=== PATIENT | female | born 1970 | race African-American/Black ===

== ENCOUNTER 2022-05-11 16:10 | Observation (INO) | payer OTHER ==
[2022-05-11 19:01] LABS: BASO % 0.2 % (0-2.0); EOS % 0.1 % (0-4.5); HEMOGLOBIN 11.7 GM/dL (10.7-15.3); LYMPH % 10.3 % (8-40); MCH 31.4 pg (25.7-33.7); MCHC 33.3 g/dl (32.0-36.0); MEAN CELL VOLUME 94.5 fl (80-96); MONO % 3.8 % (3.8-10.2); NEUT % 85.6 % (42.8-82.8); PLATELET COUNT 317 10^3/uL (134-434); RBC 3.71 M/mm3 (3.60-5.2); RDW 13.2 % (11.6-15.6)
[2022-05-11 20:32] LABS: ALBUMIN 3.9 g/dl (3.4-5.0); BLOOD UREA NITROGEN 27.1 mg/dL (7-18); CALCIUM 10.2 mg/dL (8.5-10.1)
[2022-05-11 20:35] LABS: CREATININE 2.1 mg/dL (0.55-1.3)
[2022-05-11 20:36] LABS: TOT PROT 8.4 g/dl (6.4-8.2)
[2022-05-11 20:37] LABS: BILIRUBIN,TOTAL 0.6 mg/dL (0.2-1)
[2022-05-11] MEDS ORDERED: SODIUM CHLORIDE 0.9% 500 ML INFUS.BAG IV ONE (20:59)
[2022-05-11] MEDS ORDERED: ALPRAZolam 1 MG TABLET PO PRN (21:14)
[2022-05-11] MEDS ORDERED: ALPRAZolam 0.25 MG TABLET ONE ×2 (21:38→22:37)
[2022-05-11] MEDS ORDERED: ALPRAZolam 0.25 MG TABLET PO ONE (22:34)
[2022-05-12 01:06] LABS: CALCIUM 9.7 mg/dL (8.5-10.1)
[2022-05-12 01:07] LABS: BLOOD UREA NITROGEN 23.4 mg/dL (7-18)
[2022-05-12 01:10] LABS: CREATININE 1.9 mg/dL (0.55-1.3)
[2022-05-12] MEDS ORDERED: MAG HYDROX/AL HYDROX/SIMETH 30 ML UNIT-DOSE CUP PO ONE (01:14)
[2022-05-12] MEDS ORDERED: ACETAMINOPHEN 1000 MG/100 ML BAG IVPB ONE (01:14)
[2022-05-12] MEDS ORDERED: FAMOTIDINE 20 MG/50 ML IVPB 20 MG/50 ML MG IVPB ONE (01:14)
[2022-05-12] MEDS ORDERED: FAMOTIDINE 20 MG TABLET ONE (01:33)
[2022-05-12] MEDS ORDERED: MAG HYDROX/AL HYDROX/SIMETH 30 ML UNIT-DOSE CUP ONE (01:33)
[2022-05-12] MEDS ORDERED: ACETAMINOPHEN INJECTION 100 ML IVPB ONE (01:33)
[2022-05-12] MEDS ORDERED: HEPARIN NA (PORCINE) 5,000 UNITS/ML 1ML VIAL ONE ×3 (08:53→22:03)
[2022-05-12] MEDS ORDERED: amLODIPine BESYLATE 5 MG TABLET (FP) ONE (08:53)
[2022-05-12] MEDS: amLODIPine BESYLATE 5 MG TABLET (FP) PO SCH (09:00)
[2022-05-12] MEDS: HEPARIN NA (PORCINE) 5,000 UNITS/ML 1ML VIAL SQ SCH ×3 (09:27→22:00)
[2022-05-12 10:06] LABS: INR 1.19 (0.83-1.09); PROTHROMBIN TIME (PATIENT) 13.8 SEC (9.7-13.0)
[2022-05-12 10:08] LABS: ACTIVATED PTT 29.1 SECONDS (25.2-36.5)
[2022-05-12] MEDS ORDERED: CEFTRIAXONE 1 GM/50 ML BAG ONE (12:34)
[2022-05-12 14:25] LABS: EPI CELLS 34 /uL (0-25.1); HYALINE CASTS 1 /uL (0-3.1); PH,URINE 5.5 (5.0-8.0); URINE APPEARANCE TURBID; URINE BACTERIA 155 /uL (0-1359); URINE BILIRUBIN NEGATIVE (NEGATIVE); URINE COLOR YELLOW; URINE GLUCOSE (UA) NEGATIVE (NEGATIVE); URINE KETONE NEGATIVE (NEGATIVE); URINE LEUK ESTERASE 3+ (NEGATIVE); URINE NITRITE NEGATIVE (NEGATIVE); URINE PROTEIN 1+ (NEGATIVE); URINE UROBILINOGEN 0.2 mg/dL (0.2-1.0); URINE WBC 4651 /uL (0-25.8)
[2022-05-12 14:29] LABS: OPIATES, URI NEGATIVE (NEGATIVE); PHENCYCLIDINE,URINE NEGATIVE (NEGATIVE); URINE BENZODIAZEPINES NEGATIVE (NEGATIVE)
[2022-05-12 14:30] LABS: METHADONE, UR NEGATIVE (NEGATIVE)
[2022-05-12 14:37] LABS: COCAINE, UR NEGATIVE (NEGATIVE); URINE AMPHETAMINES NEGATIVE (NEGATIVE); URINE BARBITURATES NEGATIVE (NEGATIVE)
[2022-05-12 14:41] LABS: URINE RBC 39.5 /uL (0-23.9); YEAST MODERATE (NEGATIVE)
[2022-05-12] MEDS: CEFTRIAXONE 1 GM in DEXTROSE 5%-WATER - 50 ML IVPB SCH (15:07)
[2022-05-12] MEDS ORDERED: ONDANSETRON 4 MG/2 ML VIAL IVPUSH ONE ×2 (16:15→21:22)
[2022-05-12] MEDS ORDERED: morphine CARPU-JECT 2 MG/1 ML DISP.SYRIN IVPUSH ONE (16:15)
[2022-05-12] MEDS ORDERED: ONDANSETRON 4 MG/2 ML VIAL ONE ×2 (16:21→22:02)
[2022-05-12] MEDS: busPIRone HCL 10 MG TABLET (FP) PO SCH (22:49)
[2022-05-13] MEDS ORDERED: ACETAMINOPHEN 1000 MG/100 ML BAG IVPB ONE (03:23)
[2022-05-13] MEDS: HEPARIN NA (PORCINE) 5,000 UNITS/ML 1ML VIAL SQ SCH ×3 (05:07→21:37)
[2022-05-13 10:51] LABS: BASO % 0.3 % (0-2.0); EOS % 4.5 % (0-4.5); HEMATOCRIT 34.4 % (32.4-45.2); HEMOGLOBIN 11.3 GM/dL (10.7-15.3); LYMPH % 28.2 % (8-40); MCH 31.6 pg (25.7-33.7); MCHC 32.8 g/dl (32.0-36.0); MEAN CELL VOLUME 96.3 fl (80-96); MEAN PLT VOLUME 8.6 fl (7.5-11.1); MONO % 11.2 % (3.8-10.2); NEUT % 55.8 % (42.8-82.8); PLATELET COUNT 294 10^3/uL (134-434); RBC 3.58 M/mm3 (3.60-5.2); RDW 13.7 % (11.6-15.6); WHITE BLOOD COUNT 8.1 K/mm3 (4.0-10.0)
[2022-05-13 11:29] LABS: CALCIUM 10.7 mg/dL (8.5-10.1)
[2022-05-13 11:30] LABS: MAGNESIUM 2.4 mg/dL (1.8-2.4)
[2022-05-13 11:33] LABS: ALBUMIN 3.9 g/dl (3.4-5.0); BLOOD UREA NITROGEN 26.1 mg/dL (7-18)
[2022-05-13 11:36] LABS: CREATININE 2.1 mg/dL (0.55-1.3); PHOSPHOROUS 4.1 mg/dL (2.5-4.9)
[2022-05-13 11:38] LABS: BILIRUBIN,TOTAL 0.7 mg/dL (0.2-1)
[2022-05-13] MEDS: busPIRone HCL 10 MG TABLET (FP) PO SCH ×3 (12:50→21:37)
[2022-05-13] MEDS: amLODIPine BESYLATE 5 MG TABLET (FP) PO SCH (12:50)
[2022-05-13] MEDS: CEFTRIAXONE 1 GM in DEXTROSE 5%-WATER - 50 ML IVPB SCH (12:50)
[2022-05-13] MEDS: SODIUM CHLORIDE 1,000 ML IV SCH ×2 (14:10→23:20)
[2022-05-13] MEDS ORDERED: ACETAMINOPHEN 1000 MG/100 ML BAG IVPB PRN (14:52)
[2022-05-13] MEDS ORDERED: morphine SULFATE 4 MG/ML VIAL IVPUSH PRN (15:01)
[2022-05-13] MEDS ORDERED: diazePAM 2 MG TABLET PO PRN (17:40)
[2022-05-13] MEDS ORDERED: ONDANSETRON 4 MG/2 ML VIAL IVPB PRN (17:42)
[2022-05-14] MEDS: HEPARIN NA (PORCINE) 5,000 UNITS/ML 1ML VIAL SQ SCH ×4 (06:04→21:21)
[2022-05-14 09:56] LABS: BASO % 0.3 % (0-2.0); EOS % 2.1 % (0-4.5); HEMATOCRIT 28.7 % (32.4-45.2); HEMOGLOBIN 9.6 GM/dL (10.7-15.3); LYMPH % 17.9 % (8-40); MCH 33.1 pg (25.7-33.7); MCHC 33.6 g/dl (32.0-36.0); MEAN CELL VOLUME 98.6 fl (80-96); MEAN PLT VOLUME 9.1 fl (7.5-11.1); MONO % 7.8 % (3.8-10.2); NEUT % 71.9 % (42.8-82.8); PLATELET COUNT 227 10^3/uL (134-434); RBC 2.91 M/mm3 (3.60-5.2); RDW 12.9 % (11.6-15.6); WHITE BLOOD COUNT 6.8 K/mm3 (4.0-10.0)
[2022-05-14] MEDS: amLODIPine BESYLATE 5 MG TABLET (FP) PO SCH (10:03)
[2022-05-14] MEDS: CEFTRIAXONE 1 GM in DEXTROSE 5%-WATER - 50 ML IVPB SCH (10:03)
[2022-05-14] MEDS: busPIRone HCL 10 MG TABLET (FP) PO SCH ×2 (10:03→21:21)
[2022-05-14 10:20] LABS: ALBUMIN 3.3 g/dl (3.4-5.0); CALCIUM 9.3 mg/dL (8.5-10.1)
[2022-05-14 10:21] LABS: BLOOD UREA NITROGEN 25.9 mg/dL (7-18); MAGNESIUM 2.2 mg/dL (1.8-2.4)
[2022-05-14 10:24] LABS: CREATININE 1.5 mg/dL (0.55-1.3); PHOSPHOROUS 3.4 mg/dL (2.5-4.9)
[2022-05-14 10:25] LABS: BILIRUBIN,TOTAL 0.6 mg/dL (0.2-1); TOT PROT 6.7 g/dl (6.4-8.2)
[2022-05-14 12:27] VITALS: BMI 26.6
[2022-05-14] MEDS ORDERED: DEXTROSE 5%-0.45% SALINE 1,000 ML IV SCH (12:45)
[2022-05-14] MEDS ORDERED: FLUCONAZOLE 100 MG TABLET (UD) PO ONE (14:00)
[2022-05-15] MEDS: HEPARIN NA (PORCINE) 5,000 UNITS/ML 1ML VIAL SQ SCH ×2 (05:54→13:35)
[2022-05-15 09:03] LABS: ALBUMIN 2.9 g/dl (3.4-5.0); BLOOD UREA NITROGEN 13.1 mg/dL (7-18)
[2022-05-15 09:04] LABS: CALCIUM 8.7 mg/dL (8.5-10.1)
[2022-05-15 09:06] LABS: CREATININE 1.6 mg/dL (0.55-1.3)
[2022-05-15 09:08] LABS: BILIRUBIN,TOTAL 0.6 mg/dL (0.2-1); TOT PROT 6.1 g/dl (6.4-8.2)
[2022-05-15] MEDS ORDERED: FLUCONAZOLE 100 MG TABLET (UD) PO SCH (10:00)
[2022-05-15] MEDS: amLODIPine BESYLATE 5 MG TABLET (FP) PO SCH (10:02)
[2022-05-15] MEDS: busPIRone HCL 10 MG TABLET (FP) PO SCH (10:02)
[2022-05-15 14:42] VITALS: BP 120/80; PULSE 80; RESP 20; TEMP 98.5
== END 2022-05-15 16:18 | disposition home or self-care (01) ==
LOC: JER 16:10 → JERBED 05-12 02:16 → INTOOBSV 05-12 02:16 → J5S 05-13 00:50
PROVIDERS: ADMIT Internal Medicine; ATTEND Internal Medicine
PROC: 3E03329 Introduction of Other Anti-infective into Peripheral Vein, Percutaneous Approach (ICD-10-PCS; principal; 2022-05-12)
PROC: 3E033NZ Introduction of Analgesics, Hypnotics, Sedatives into Peripheral Vein, Percutaneous Approach (ICD-10-PCS; 2022-05-12)
PROC: 3E0337Z Introduction of Electrolytic and Water Balance Substance into Peripheral Vein, Percutaneous Approach (ICD-10-PCS; 2022-05-12)
PROC: 3E033GC Introduction of Other Therapeutic Substance into Peripheral Vein, Percutaneous Approach (ICD-10-PCS; 2022-05-12)
DX: R79.89 Other specified abnormal findings of blood chemistry (principal); R00.2 Palpitations; F41.0 Panic disorder [episodic paroxysmal anxiety]; I12.9 Hypertensive chronic kidney disease with stage 1 through stage 4 chronic kidney disease, or unspecified chronic kidney disease; N18.9 Chronic kidney disease, unspecified; N17.9 Acute kidney failure, unspecified; Z94.0 Kidney transplant status; I45.19 Other right bundle-branch block; N39.0 Urinary tract infection, site not specified; K56.609 Unspecified intestinal obstruction, unspecified as to partial versus complete obstruction; Z87.09 Personal history of other diseases of the respiratory system; Z87.440 Personal history of urinary (tract) infections; N13.30 Unspecified hydronephrosis; F41.9 Anxiety disorder, unspecified; E87.0 Hyperosmolality and hypernatremia
CPT/HCPCS: 0241U-QW; 36415; 71045-TC-FY; 71046-TC-FY; 74019-TC-FY; 74176-TC; 80048; 80053; 80307; 81003; 83735; 84100; 84443; 84484; 85025; 85379; 85610; 85730; 87077; 87086; 93005; 93010; 93306-TC; 93970-TC; 99285-25; G0378; J1644